=== PATIENT | male | born 1950 ===

== ENCOUNTER 2016-11-19 09:38 | Day surgery (SDC) | payer MEDICARE, MEDICAID ==
[2016-11-17 09:42] VITALS: BMI 26.6
[2016-11-19 10:46] VITALS: O2SAT 100
[2016-11-19] MEDS ORDERED: Propofol 10 mg/ml Inj (20 ML) ONE (12:41)
[2016-11-19] MEDS ORDERED: Lidocaine Hydrochloride 5 ML INJ ONE (12:52)
[2016-11-19] MEDS ORDERED: Lactated Ringer's 500 ML IV SCH (14:15)
[2016-11-19 15:45] VITALS: TEMP 97.2
[2016-11-19 15:49] VITALS: RESP 16
[2016-11-19 15:54] VITALS: BP 177/90; PULSE 84
== END 2016-11-19 15:13 | disposition home or self-care (01) ==
LOC: C.ENDO 09:38
PROVIDERS: ATTEND Internal Medicine Gastroenterology
DX: K29.80 Duodenitis without bleeding (principal); K29.70 Gastritis, unspecified, without bleeding; K64.8 Other hemorrhoids; D12.3 Benign neoplasm of transverse colon
CPT/HCPCS: 43239; 45388; 82948; 88305; J2704; J3010; J7120

== ENCOUNTER 2018-09-15 18:10 | Observation (INO) | payer MEDICARE, MEDICAID ==
[2018-09-15 18:11] VITALS: BMI 26.6
[2018-09-15] MEDS ORDERED: Sodium Chloride 0.9% 1,000 ML IV ONE (19:52)
--- NOTE | 2018-09-15 19:52 | C.PDOC ---
History Of Present Illness Patient presents to the ED with complaints of hematuria which started at 10am today. He noticed small blood clots in his urine and recalls a similar episode that took place a few years ago when he was diagnosed with renal cancer. Denies nausea, vomiting, fever, and chills. Time Seen by Provider: 09/15/18 19:51 Chief Complaint (Nursing): Male Genitourinary History Per: Patient History/Exam Limitations: no limitations Onset/Duration Of Symptoms: Hrs (11) Current Symptoms Are (Timing): Still Present Severity: Moderate Pain Scale Rating Of: 4 Associated Symptoms: denies: Fever, Chills, Nausea, Vomiting Recent travel outside of the [place]: No Additional History Per: Family Past Medical History Vital Signs: Last Vital Signs Temp 99.4 F 09/15/18 18:13 Pulse 78 09/15/18 18:13 Resp 20 09/15/18 18:13 BP 148/76 09/15/18 18:13 Pulse Ox 96 09/15/18 18:13 Primary Care Provider: Gian Hurtado - Medical History PMH: Anemia, Diabetes, HTN, Hypercholesterolemia, Chronic Kidney Disease Other PMH: Renal cancer Family History: States: Unknown Family Hx - Social History Hx Tobacco Use: No Hx Alcohol Use: No Hx Substance Use: No - Immunization History Hx Tetanus Toxoid Vaccination: No Hx Influenza Vaccination: Yes Hx Pneumococcal Vaccination: No Review Of Systems Constitutional: Negative for: Fever, Chills Cardiovascular: Negative for: Chest Pain, Palpitations Respiratory: Negative for: Cough Gastrointestinal: Negative for: Nausea, Vomiting, Abdominal Pain, Diarrhea Genitourinary: Positive for: Hematuria Musculoskeletal: Negative for: Back Pain Skin: Negative for: Rash Neurological: Negative for: Weakness, Numbness Psych: Negative for: Anxiety Physical Exam - Physical Exam Appears: Non-toxic Skin: Warm, Dry Head: Normacephalic Eye(s): bilateral: Normal Inspection Oral Mucosa: Moist Neck: Trachea Midline, Supple Chest: Symmetrical, No Tenderness Cardiovascular: Rhythm Regular Respiratory: No Rales, No Rhonchi, No Wheezing Gastrointestinal/Abdominal: Soft, No Tenderness, No Distention, No Guarding Back: No CVA Tenderness Male Genital: No Testicular Tenderness, No Inguinal Tenderness Extremity: No Tenderness Extremity: Bilateral: Atraumatic Pulses: Left Dorsalis Pedis: Normal, Right Dorsalis Pedis: Normal Neurological/Psych: Oriented x3 Gait: Steady ED Course And Treatment - Laboratory Results Result Diagrams: 09/15/18 20:37 09/15/18 20:37 O2 Sat by Pulse Oximetry: 96 (RA) Pulse Ox Interpretation: Normal Progress Note: Blood work urinalysis ordered. CT abd/pel ordered. IV fluids administered. Disposition Discussed With Dr.: Marycruz Fowler Comment: accepted the pt on her service and took over the care at 11:13 PM Doctor Will See Patient In The: ED Counseled Patient/Family Regarding: Studies Performed, Diagnosis - Disposition Disposition: HOSPITALIZED Disposition Time: 19:52 Condition: FAIR Forms: [employer] (Icelandic) - POA Present On Arrival: Poor Glycemic Control - Clinical Impression Clinical Impression: Hematuria, Esophagitis, Renal insufficiency, Hyponatremia - Scribe Statement The provider has reviewed the documentation as recorded by the Scribe (Rosaline Dan) Provider Attestation: All medical record entries made by the Scribe were at my direction and personally dictated by me. I have reviewed the chart and agree that the record accurately reflects my personal performance of the history, physical exam, medical decision making, and the department course for this patient. I have also personally directed, reviewed, and agree with the discharge instructions and disposition. Decision To Admit - Pt Status Changed To: Hospital Disposition Of: Observation - . Bed Request Type: Regular Admitting Physician: Marycruz Fowler Patient Diagnosis: Hematuria, Esophagitis, Renal insufficiency, Hyponatremia
[2018-09-15 20:41] LABS: BASO # 0.1 K/uL (0.0-0.2); BASO % 0.7 % (0.0-2.0); EOS # 0.2 K/uL (0.0-0.7); EOS % 2.1 % (0.0-4.0); HEMOGLOBIN 10.1 g/dL (12.0-18.0); LYMPH # 2.2 K/uL (1.0-4.3); LYMPH % 30.8 % (20.0-40.0); MEAN CORPUSCULAR HEMOGLOBIN 28.7 pg (27.0-31.0); MEAN CORPUSCULAR HGB CONC 34.2 g/dL (33.0-37.0); MONO # 0.6 K/uL (0.0-0.8); MONO % 8.6 % (0.0-10.0); NEUT # 4.2 K/uL (1.8-7.0); NEUT % 57.8 % (50.0-75.0); NRBC % 0.1 % (0.0-2.0); RBC 3.53 Mil/uL (4.40-5.90); RED CELL DISTRIBUTION WIDTH 13.9 % (11.5-14.5); WHITE BLOOD COUNT 7.2 K/uL (4.8-10.8)
[2018-09-15 20:42] LABS: URINE BACTERIA RARE (<OCC); URINE BILIRUBIN NEGATIVE (NEGATIVE); URINE CLARITY Clear (Clear); URINE COLOR Straw (YELLOW); URINE GLUCOSE (UA) 2+ mg/dL (Normal); URINE LEUKOCYTE ESTERASE NEG Leu/uL (Negative); URINE PROTEIN NEGATIVE (NEGATIVE); URINE UROBILINOGEN NORMAL mg/dL (0.2-1.0)
[2018-09-15 21:04] LABS: ALB/GLOB RATIO 1.5 (1.0-2.1); ALBUMIN 4.7 g/dL (3.5-5.0); CALCIUM 8.8 mg/dl (8.6-10.4)
[2018-09-15 21:07] LABS: URINE BLOOD 2+ (NEGATIVE)
[2018-09-15 21:12] LABS: PARTIAL THROMBOPLASTIN TIME 31.8 SECONDS (21-34); PROTHROMBIN TIME 10.4 SECONDS (9.7-12.2)
--- NOTE | 2018-09-16 00:08 | CP.PCM.HP ---
<Daniel Morales - Last Filed: 09/16/18 02:45> History of Present Illness - History of Present Illness History of Present Illness: "I'm urinating blood" 68M PMHx of HTN DM2, CKD and RCC presents to the ED with new onset hematuria since this morning. reports dark red urine with clots that was painless and without any inciting discomfort, hesistancy, back pain, or difficult initiating stream. Pt said this happened one time in the past 10 years ago when he was dx with renal cell ca, eventually leading to a L nephrectomy. Pt reports no new medication changes, saws hes been compliant with his meds and has been following up with his PMD and specialists. denies CP SOB FC NV back pain, suprapubic pain, dizziness, syncope, blood in stool, recent weight changes, night sweats, headaches, vision changes. 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, retired store web merchant Allergies: Denies Present on Admission - Present on Admission Any Indicators Present on Admission: No Review of Systems - Review of Systems All systems: reviewed and no additional remarkable complaints except (as per HPI) Past Patient History - Past Medical History & Family History Past Medical History?: Yes - Past Social History Smoking Status: Never Smoked - CARDIAC Hx Hypercholesterolemia: Yes Hx Hypertension: Yes - PULMONARY Hx Respiratory Disorders: Yes - NEUROLOGICAL Hx Neurological Disorder: No - HEENT Hx HEENT Problems: Yes Hx Cataracts: Yes (BIOL) - RENAL Hx Chronic Kidney Disease: Yes - ENDOCRINE/METABOLIC Hx Endocrine Disorders: Yes Hx Diabetes Mellitus Type 2: Yes - HEMATOLOGICAL/ONCOLOGICAL Hx Anemia: Yes - INTEGUMENTARY Hx Dermatological Problems: No - MUSCULOSKELETAL/RHEUMATOLOGICAL Hx Musculoskeletal Disorders: Yes Hx Osteoarthritis: Yes - GASTROINTESTINAL Hx Gastrointestinal Disorders: No - GENITOURINARY/GYNECOLOGICAL Hx Genitourinary Disorders: No - PSYCHIATRIC Hx Substance Use: No - SURGICAL HISTORY Hx Surgeries: Yes Hx Cataract Extraction: Yes (BIOL) Hx Orthopedic Surgery: Yes (left knee) Other/Comment: LEFT KIDNEY REMOVED - ANESTHESIA Hx Anesthesia: Yes Hx Anesthesia Reactions: No Hx Malignant Hyperthermia: No Meds Allergies/Adverse Reactions: Allergies Allergy/AdvReac Type Severity Reaction Status Date / Time No Known Allergies Allergy Verified 09/15/18 18:16 Physical Exam - Constitutional Appears: Non-toxic, No Acute Distress - Head Exam Head Exam: ATRAUMATIC, NORMOCEPHALIC - Eye Exam Eye Exam: EOMI. absent: Scleral icterus Pupil Exam: PERRL Additional comments: no conjunctival pallor - ENT Exam ENT Exam: Mucous Membranes Moist - Neck Exam Neck exam: Positive for: Full Rom. Negative for: Lymphadenopathy - Respiratory Exam Respiratory Exam: Clear to Auscultation Bilateral - Cardiovascular Exam Cardiovascular Exam: Rubs, +S1, +S2 - GI/Abdominal Exam GI & Abdominal Exam: Normal Bowel Sounds. absent: Firm, Organomegaly, Tenderness Additional comments: 15cm L lower lateral surgical scar, transverse linear - Exam Additional comments: no blood at meatus noted, no suprapubic tenderness - Extremities Exam Extremities exam: Positive for: pedal edema (+1 to distal shins) - Neurological Exam Neurological exam: Alert, CN II-XII Intact, Oriented x3 - Psychiatric Exam Psychiatric exam: Normal Affect, Normal Mood - Skin Skin Exam: Dry, Normal Color, Warm Results - Vital Signs Recent Vital Signs: Last Vital Signs Temp 99.4 F 09/15/18 18:13 Pulse 78 09/15/18 18:13 Resp 20 09/15/18 18:13 BP 148/76 09/15/18 18:13 Pulse Ox 96 09/15/18 23:17 - Labs Result Diagrams: 09/15/18 20:37 09/15/18 20:37 Labs: Laboratory Results - last 24 hr 09/15/18 09/15/18 09/15/18 20:31 20:37 20:37 WBC 7.2 RBC 3.53 L Hgb 10.1 L Hct 29.6 L MCV 84.0 D MCH 28.7 MCHC 34.2 RDW 13.9 Plt Count 215 MPV 8.0 Neut % (Auto) 57.8 Lymph % (Auto) 30.8 [place] % (Auto) 8.6 Eos % (Auto) 2.1 Baso % (Auto) 0.7 Neut # (Auto) 4.2 Lymph # (Auto) 2.2 [place] # (Auto) 0.6 Eos # (Auto) 0.2 Baso # (Auto) 0.1 PT 10.4 INR 1.0 APTT 31.8 Sodium Potassium Chloride Carbon Dioxide Anion Gap BUN Creatinine Est GFR ( Amer) Est GFR (Non-Af Amer) Random Glucose Hemoglobin A1c Calcium Total Bilirubin AST ALT Alkaline Phosphatase Total Protein Albumin Globulin Albumin/Globulin Ratio Urine Color Straw Urine Clarity Clear Urine pH 7.0 Ur Specific Vera 1.003 Urine Protein Negative Urine Glucose (UA) 2+ H Urine Ketones Negative Urine Blood 2+ H Urine Nitrate Negative Urine Bilirubin Negative Urine Urobilinogen Normal Ur Leukocyte Esterase Neg Urine WBC (Auto) < 1 Urine Bacteria Rare 09/15/18 09/15/18 20:37 20:37 WBC RBC Hgb Hct MCV MCH MCHC RDW Plt Count MPV Neut % (Auto) Lymph % (Auto) [place] % (Auto) Eos % (Auto) Baso % (Auto) Neut # (Auto) Lymph # (Auto) [place] # (Auto) Eos # (Auto) Baso # (Auto) PT INR APTT Sodium 129 L Potassium 5.3 H Chloride 93 L Carbon Dioxide 21 L Anion Gap 20 BUN 33 H Creatinine 3.7 H Est GFR ( Amer) 20 Est GFR (Non-Af Amer) 16 Random Glucose 262 H D Hemoglobin A1c 11.9 H D Calcium 8.8 Total Bilirubin 0.7 AST 42 ALT 66 Alkaline Phosphatase 132 H Total Protein 7.8 Albumin 4.7 Globulin 3.1 Albumin/Globulin Ratio 1.5 Urine Color Urine Clarity Urine pH Ur Specific Vera Urine Protein Urine Glucose (UA) Urine Ketones Urine Blood Urine Nitrate Urine Bilirubin Urine Urobilinogen Ur Leukocyte Esterase Urine WBC (Auto) Urine Bacteria Assessment & Plan - Assessment and Plan (Free Text) Assessment: 68M PMHx of HTN, DM2, CKD, RCC admitted for new onset hematuria and SYBIL New Onset Hematuria-acute Hx of RCC -CT AbPelv w/o cont: prelim neg f/u official read -NS @ 100 -Urology Dr Hu consulted -Nephro Dr Turner consulted -f/u IL6 and TNF SYBIL on CKD-acute on chronic -Cr 3.7, up from 2s in past -Nephro Dr Turner, f/u recs -Renvela 2mg TID -SodiumBicarb 650 TID -Drisdol qwk -Monitor I&Os HTN -Norvasc 10 daily -Coreg 25 BID -Lasix 20 daily PO -ASA 81 held for hematuria -Crestor 20 daily DM2 -ISS Low -Lantus 10 daily AM -Januvia 1 HS -Glucotrol 1 daily -A1C 11.9 PPx Diabetic HHDiet- vegetarian hold anti coag for hematuria SCDs CK PGY1 dw Dr Fowler <[email or web address] N - Last Filed: 09/16/18 05:32> Results - Vital Signs Recent Vital Signs: Last Vital Signs Temp 97.9 F 09/16/18 01:36 Pulse 88 09/16/18 01:36 Resp 20 09/16/18 01:36 BP 162/76 H 09/16/18 01:36 Pulse Ox 95 09/16/18 01:36 - Labs Result Diagrams: 09/15/18 20:37 09/15/18 20:37 Labs: Laboratory Results - last 24 hr 09/15/18 09/15/18 09/15/18 20:31 20:37 20:37 WBC 7.2 RBC 3.53 L Hgb 10.1 L Hct 29.6 L MCV 84.0 D MCH 28.7 MCHC 34.2 RDW 13.9 Plt Count 215 MPV 8.0 Neut % (Auto) 57.8 Lymph % (Auto) 30.8 [place] % (Auto) 8.6 Eos % (Auto) 2.1 Baso % (Auto) 0.7 Neut # (Auto) 4.2 Lymph # (Auto) 2.2 [place] # (Auto) 0.6 Eos # (Auto) 0.2 Baso # (Auto) 0.1 PT 10.4 INR 1.0 APTT 31.8 Sodium Potassium Chloride Carbon Dioxide Anion Gap BUN Creatinine Est GFR ( Amer) Est GFR (Non-Af Amer) Random Glucose Hemoglobin A1c Calcium Total Bilirubin AST ALT Alkaline Phosphatase Total Protein Albumin Globulin Albumin/Globulin Ratio Urine Color Straw Urine Clarity Clear Urine pH 7.0 Ur Specific Vera 1.003 Urine Protein Negative Urine Glucose (UA) 2+ H Urine Ketones Negative Urine Blood 2+ H Urine Nitrate Negative Urine Bilirubin Negative Urine Urobilinogen Normal Ur Leukocyte Esterase Neg Urine WBC (Auto) < 1 Urine Bacteria Rare Blood Type Antibody Screen 09/15/18 09/15/18 09/16/18 20:37 20:37 01:32 WBC RBC Hgb Hct MCV MCH MCHC RDW Plt Count MPV Neut % (Auto) Lymph % (Auto) [place] % (Auto) Eos % (Auto) Baso % (Auto) Neut # (Auto) Lymph # (Auto) [place] # (Auto) Eos # (Auto) Baso # (Auto) PT INR APTT Sodium 129 L Potassium 5.3 H Chloride 93 L Carbon Dioxide 21 L Anion Gap 20 BUN 33 H Creatinine 3.7 H Est GFR ( Amer) 20 Est GFR (Non-Af Amer) 16 Random Glucose 262 H D Hemoglobin A1c 11.9 H D Calcium 8.8 Total Bilirubin 0.7 AST 42 ALT 66 Alkaline Phosphatase 132 H Total Protein 7.8 Albumin 4.7 Globulin 3.1 Albumin/Globulin Ratio 1.5 Urine Color Urine Clarity Urine pH Ur Specific Vera Urine Protein Urine Glucose (UA) Urine Ketones Urine Blood Urine Nitrate Urine Bilirubin Urine Urobilinogen Ur Leukocyte Esterase Urine WBC (Auto) Urine Bacteria Blood Type O POSITIVE Antibody Screen Negative Attending/Attestation - Attestation I have fully participated in the care of the patient.: Yes I have reviewed all pertinent clinical information: Yes Notes (Text): 09/16/18 05:31 pt is seen and helped the resident with manegment by me.
[2018-09-16] MEDS: Sodium Chloride 0.9% 1,000 ML IV SCH ×2 (01:31→09:58)
[2018-09-16 01:37] VITALS: RESP 20
[2018-09-16] MEDS ORDERED: Dextrose 50% SYRINGE Inj (50 ml) IV PRN (01:43)
[2018-09-16] MEDS ORDERED: Glucagon Recombinant 1 mg Inj IM PRN (01:43)
[2018-09-16 08:23] LABS: BASO % 0.5 % (0.0-2.0); EOS # 0.1 K/uL (0.0-0.7); EOS % 1.7 % (0.0-4.0); HEMOGLOBIN 8.7 g/dL (12.0-18.0); LYMPH # 2.1 K/uL (1.0-4.3); LYMPH % 32.6 % (20.0-40.0); MEAN CELL VOLUME 83.9 fL (80.0-94.0); MEAN CORPUSCULAR HEMOGLOBIN 29.7 pg (27.0-31.0); MEAN CORPUSCULAR HGB CONC 35.3 g/dL (33.0-37.0); MONO # 0.5 K/uL (0.0-0.8); MONO % 7.8 % (0.0-10.0); NEUT # 3.6 K/uL (1.8-7.0); NEUT % 57.4 % (50.0-75.0); RBC 2.94 Mil/uL (4.40-5.90); RED CELL DISTRIBUTION WIDTH 13.6 % (11.5-14.5); WHITE BLOOD COUNT 6.3 K/uL (4.8-10.8)
[2018-09-16] MEDS: (Novolin R) Insulin Human Regular 100 units/ml vial SC SCH ×3 (08:24→17:25)
--- NOTE | 2018-09-16 08:28 | CT ---
Date of service: 09/15/2018 PROCEDURE: CT Abdomen and Pelvis without intravenous contrast HISTORY: hematuria COMPARISON: 10/08/2012 TECHNIQUE: Without contrast.. Contrast dose: 0 Radiation dose: Total exam DLP = 653.69 mGy-cm. This CT exam was performed using one or more of the following dose reduction techniques: Automated exposure control, adjustment of the mA and/or kV according to patient size, and/or use of iterative reconstruction technique. FINDINGS: LOWER THORAX: There is circumferential mural thickening of the distal thoracic esophagus. This is nonspecific and may be due to esophagitis or less likely neoplasm. Consider evaluation with endoscopy. LIVER: Unremarkable. No gross lesion or ductal dilatation. GALLBLADDER AND BILE DUCTS: Contracted. No calcified stones. PANCREAS: Unremarkable. No gross lesion or ductal dilatation. SPLEEN: Unremarkable. ADRENALS: Unremarkable. No mass. KIDNEYS AND URETERS: Status post left nephrectomy. Right kidney unremarkable. No calculus, mass or hydronephrosis. Mild right adrenal hypertrophy. Left adrenal not identified VASCULATURE: Unremarkable. No aortic aneurysm. There is atherosclerotic calcification of the abdominal aorta. BOWEL: Unremarkable. No obstruction. No gross mural thickening. APPENDIX: Not identified. No secondary findings. PERITONEUM: Unremarkable. No free fluid. No free air. LYMPH NODES: Unremarkable. No enlarged lymph nodes. BLADDER: Unremarkable. REPRODUCTIVE: Normal prostate BONES: Multilevel degenerative disc disease in the lower lumbar spine. No acute fracture. OTHER FINDINGS: None. IMPRESSION: No evidence of urinary calculus or urinary tract obstruction. Status post left nephrectomy. Right adrenal hypertrophy. Mural thickening of the distal thoracic esophagus. Correlate with endoscopy. No other significant. The preliminary findings for this examination were reported by [facility] Radiology at 11 p.m. on 09/15/2018. There is concurrence of this report with the preliminary findings.
[2018-09-16 08:35] LABS: ALB/GLOB RATIO 1.4 (1.0-2.1); ALBUMIN 3.8 g/dL (3.5-5.0); CALCIUM 8.9 mg/dl (8.6-10.4)
--- NOTE | 2018-09-16 09:42 | RAD ---
Date of service: 09/16/2018 PROCEDURE: CHEST RADIOGRAPH, 1 VIEW HISTORY: ckd COMPARISON: 03/16/2016 FINDINGS: LUNGS: Clear. PLEURA: No pneumothorax or pleural fluid seen. CARDIOVASCULAR: No aortic atherosclerotic calcification present. Normal. OSSEOUS STRUCTURES: No significant abnormalities. VISUALIZED UPPER ABDOMEN: Normal. OTHER FINDINGS: None. IMPRESSION: No active disease.
[2018-09-16] MEDS ORDERED: (Lantus) Insulin Glargine, Recombinant SC SCH (10:00)
[2018-09-16] MEDS ORDERED: GlipiZIDE 10 mg SR Tab PO SCH (10:00)
[2018-09-16] MEDS ORDERED: Multiple Vitamins Tab PO SCH (10:00)
--- NOTE | 2018-09-16 13:21 | CP.PCM.PN ---
Subjective - Date & Time of Evaluation Date of Evaluation: 09/16/18 Time of Evaluation: 13:23 - Subjective Subjective: PGY-[address] Tara Easley Patient seen and examined at bedside. No acute events overnight. Patient states he had one bout of painless hematuria, which has now resolved. Patient states he urinated 5-6 times today and urine was clear, non-bloody. Denies dysuria, incresed frequency, flank pain, suprapubic pain, chest pain, nausea, vomiting, diarrhea, dizziness. Objective - Vital Signs/Intake and Output Vital Signs (last 24 hours): Temp Pulse Resp BP Pulse Ox 98.2 F 83 20 151/77 H 96 09/16/18 07:00 09/16/18 07:00 09/16/18 07:00 09/16/18 09:53 09/16/18 07:00 Intake and Output: 09/16/18 09/16/18 06:59 18:59 Intake Total 840 900 Output Total 600 Balance 240 900 - Medications Medications: Current Medications Amlodipine Besylate (Norvasc) 10 mg PO DAILY [facility] Last Admin: 09/16/18 09:54 Dose: 10 mg Aspirin (Aspirin Chewable) 81 mg PO DAILY [facility] Carvedilol (Coreg) 25 mg PO BID [facility] Last Admin: 09/16/18 09:53 Dose: 25 mg Dextrose (Dextrose 50% Inj) 0 ml IV STAT PRN; Protocol PRN Reason: Hypoglycemia Protocol Dextrose (Glutose 15) 0 gm PO ONCE PRN; Protocol PRN Reason: Hypoglycemia Protocol Ergocalciferol (Drisdol 50,000 Intl Units Cap) 1 cap PO QWK [facility] Glucagon (Glucagen Diagnostic Kit) 0 mg IM STAT PRN; Protocol PRN Reason: Hypoglycemia Protocol Sodium Chloride (Sodium Chloride 0.9%) 1,000 mls @ 100 mls/hr IV .Q10H [facility] Last Admin: 09/16/18 09:58 Dose: 100 mls/hr Dextrose (Dextrose 5% In Water 1000 Ml) 1,000 mls @ 0 mls/hr IV .Q0M PRN; Protocol PRN Reason: Hypoglycemia Protocol Insulin Glargine (Lantus) 10 unit SC DAILY [facility] Last Admin: 09/16/18 09:54 Dose: 10 unit Insulin Human Regular (Novolin R) 0 unit SC ACHS [facility]; Protocol Last Admin: 09/16/18 11:44 Dose: 3 unit Multivitamins (Hexavitamin) 1 tab PO DAILY [facility] Last Admin: 09/16/18 09:54 Dose: 1 tab Pneumococcal Polyvalent Vaccine (Pneumovax 23 Vaccine) 0.5 ml IM .ONCE ONE Stop: 09/18/18 10:01 Rosuvastatin Calcium (Crestor) 20 mg PO DAILY [facility] Last Admin: 09/16/18 09:53 Dose: 20 mg Sevelamer Carbonate (Renvela) 1,600 mg PO TID [facility] Last Admin: 09/16/18 13:06 Dose: 1,600 mg Sodium Bicarbonate (Sodium Bicarbonate Tab) 650 mg PO TID [facility] Last Admin: 09/16/18 13:06 Dose: 650 mg - Labs Labs: 09/16/18 08:14 09/16/18 08:14 PT 10.4 SECONDS (9.7-12.2) 09/15/18 20:37 INR 1.0 09/15/18 20:37 APTT 31.8 SECONDS (21-34) 09/15/18 20:37 - Constitutional Appears: No Acute Distress - Head Exam Head Exam: ATRAUMATIC, NORMOCEPHALIC - Eye Exam Eye Exam: EOMI - ENT Exam ENT Exam: Mucous Membranes Moist - Respiratory Exam Respiratory Exam: Clear to Ausculation Bilateral, NORMAL BREATHING PATTERN. absent: Rhonchi, Wheezes - Cardiovascular Exam Cardiovascular Exam: REGULAR RHYTHM - GI/Abdominal Exam GI & Abdominal Exam: Soft, Normal Bowel Sounds. absent: Tenderness Additional comments: 15cm L lower lateral surgical scar, transverse linear - Exam Additional comments: no blood at meatus noted, no suprapubic tenderness - Extremities Exam Extremities Exam: Normal Inspection. absent: Pedal Edema, Tenderness - Neurological Exam Neurological Exam: Alert, Awake, Oriented x3 - Psychiatric Exam Psychiatric exam: Normal Affect, Normal Mood - Skin Skin Exam: Dry, Intact Assessment and Plan - Assessment and Plan (Free Text) Assessment: 68M PMHx of HTN, DM2, CKD, RCC admitted for new onset hematuria and SYBIL New Onset Hematuria-acute Hx of RCC Imaging -CT AbPelv w/o cont 09/15: No evidence of urinary calculus or urinary tract obstruction. Status post left nephrectomy. Right adrenal hypertrophy. Mural thickening of the distal thoracic esophagus. Correlate with endoscopy. No other significant. -NS @ 100 -Urology Dr Hu consulted -Nephro Dr Turner consulted -f/u IL6 and TNF YSBIL on CKD-acute on chronic -Cr 3.7, up from 2s in past -Nephro Dr Turner, f/u recs -Renvela 2mg TID -SodiumBicarb 650 TID -Drisdol qwk -Monitor I&Os Imaging CXR 09/15: No active disease HTN -Norvasc 10 daily -Coreg 25 BID -Lasix 20 daily PO -ASA 81 held for hematuria -Crestor 20 daily DM2 -ISS Low -Lantus 10 daily AM -Januvia 1 HS -Glucotrol 1 daily -A1C 11.9 PPx Diabetic HHDiet- vegetarian hold anti coag for hematuria SCDs Assessment and plan d/w Dr. Tara Beltran, PGY-1
--- NOTE | 2018-09-16 15:25 | CP.PCM.CON ---
History of Present Illness - History of Present Illness History of Present Illness: Nephrology Consultation Note: Assessment: Stable hematuria r/o urothelial etiology as hx of RCC s/p left nephrectomy uncontrolled DM with hyperglycemia, hyponatremia and hyperkalemia Diabetic chronic Kidney Disease (E11.22) Hypertensive Chronic Kidney Disease (I12.9) Chronic Kidney Disease (N18.4) Stage 4 Anemia (D64.9), Hyperphosphatemia (E83.39), Secondary Hyperparathyroidism (E21.1) Plan No acute need for renal replacement therapy at this time. Hypertension control with meds as ordered. Maintain hemodynamics stable. Avoid hypotension. Patient not on ACEI/ARB due to advanced ckd and hyperkalemia Monitor Input/Output, daily weights and renal function with basic metabolic panel started iron supplements. continue with MVI can d/c IVF urology eval continue with phos binders, sodium bicarb. can resume lasix Dose meds/antibiotics for reduced GFR. Avoid fleets enema/magnesium based laxatives. Avoid nephrotoxins/NSAIDs/ iodinated contrast (unless needed emergently) Glycemic control Further work up/management as per primary team pt stable for d/c from renal perspective when planned with close outpt f/up Thanks for allowing me to participate in care of your patient. Will follow patient with you. Please call if any Qs. had d/w family and team Dr Alexis Turner Office: [phone] Chief Complaint; blood in urine Reason for consult:CKD management HPI: Pt is a 68 M with hx of diabetes Mellitus ( years), hypertension (years) CKD 4/5 (f/up Dr Fleming) and RCC s/p left nephrectomy presented with complaints of an episode of bright blood in urine. it has resolved now. denies trauma. Denies OTC/herbal meds or NSAIDs No recent iodinated contrast exposure. No obvious episodes of low BP. pt with baseline cr 4.0. no urine complaint at present ROS: Cardiovascular: No chest pain. Pulmonary: No shortness of breath Gastrointestinal: denies abdominal pain No nausea. No vomiting. Genitourinary: No pain while urinating. Denies blood in urine at present. All other negative except as mentioned in HPI Physical Examination: General Appearance: Comfortable, in no acute respiratory distress, co-operative . Vitals reviewed and noted as below Head; Atraumatic, normocephalic ENT: no ulcers no thrush. Tongue is midline. Oropharynx: no rash or ulcers. EYES: Pupils are equal, round and reactive to light accommodation. Eye muscles and extraocular movement intact. Sclera is anicteric. Neck; supple no lymphadenopathy, no thyromegaly or bruit Lungs: Normal respiratory rate/effort. Breath sounds bilateral equal and clear Heart: Normal rate. s1s2 normal. No rub or gallop. Extremities: no edema. No varicose veins Neurological: Patient is alert, awake and oriented to person, place and time. No focal deficit. Strength bilateral appropriate and equal Skin: Warm and dry. Normal turgor. No rash. Palpitation: Normal elasticity for age Abdomen: Abdomen is soft. Bowel sounds +. There is no abdominal tenderness, no guarding/rigidity no organomegaly Psych: normal insight and normal affect/mood MSK: no joint tenderness or swelling. Digits and nails normal, no deformity : kidney or bladder not palpable Labs/imaging reviewed. Past medical history, past surgical history, family history, social history, allergy reviewed and noted as below Family hx: no hx of CKD. Rest non-contributory Past Patient History - Past Medical History & Family History Past Medical History?: Yes - Past Social History Smoking Status: Never Smoked - CARDIAC Hx Hypercholesterolemia: Yes Hx Hypertension: Yes - PULMONARY Hx Respiratory Disorders: Yes - NEUROLOGICAL Hx Neurological Disorder: No - HEENT Hx HEENT Problems: Yes Hx Cataracts: Yes (BIOL) - RENAL Hx Chronic Kidney Disease: Yes - ENDOCRINE/METABOLIC Hx Endocrine Disorders: Yes Hx Diabetes Mellitus Type 2: Yes - HEMATOLOGICAL/ONCOLOGICAL Hx Anemia: Yes - INTEGUMENTARY Hx Dermatological Problems: No - MUSCULOSKELETAL/RHEUMATOLOGICAL Hx Musculoskeletal Disorders: Yes Hx Osteoarthritis: Yes - GASTROINTESTINAL Hx Gastrointestinal Disorders: No - GENITOURINARY/GYNECOLOGICAL Hx Genitourinary Disorders: No - PSYCHIATRIC Hx Substance Use: No - SURGICAL HISTORY Hx Surgeries: Yes Hx Cataract Extraction: Yes (BIOL) Hx Orthopedic Surgery: Yes (left knee) Other/Comment: LEFT KIDNEY REMOVED - ANESTHESIA Hx Anesthesia: Yes Hx Anesthesia Reactions: No Hx Malignant Hyperthermia: No Meds Allergies/Adverse Reactions: Allergies Allergy/AdvReac Type Severity Reaction Status Date / Time No Known Allergies Allergy Verified 09/15/18 18:16 - Medications Medications: Current Medications Amlodipine Besylate (Norvasc) 10 mg PO DAILY [facility] Last Admin: 05/31/19 09:54 Dose: 10 mg Aspirin (Aspirin Chewable) 81 mg PO DAILY [facility] Carvedilol (Coreg) 25 mg PO BID [facility] Last Admin: 09/16/18 09:53 Dose: 25 mg Dextrose (Dextrose 50% Inj) 0 ml IV STAT PRN; Protocol PRN Reason: Hypoglycemia Protocol Dextrose (Glutose 15) 0 gm PO ONCE PRN; Protocol PRN Reason: Hypoglycemia Protocol Ergocalciferol (Drisdol 50,000 Intl Units Cap) 1 cap PO QWK [facility] Ferrous Gluconate (Fergon) 324 mg PO TID [facility] Last Admin: 09/16/18 13:51 Dose: 324 mg Glucagon (Glucagen Diagnostic Kit) 0 mg IM STAT PRN; Protocol PRN Reason: Hypoglycemia Protocol Dextrose (Dextrose 5% In Water 1000 Ml) 1,000 mls @ 0 mls/hr IV .Q0M PRN; Protocol PRN Reason: Hypoglycemia Protocol Insulin Glargine (Lantus) 10 unit SC DAILY [facility] Last Admin: 09/16/18 09:54 Dose: 10 unit Insulin Human Regular (Novolin R) 0 unit SC ACHS [facility]; Protocol Last Admin: 09/16/18 11:44 Dose: 3 unit Multivitamins (Hexavitamin) 1 tab PO DAILY [facility] Last Admin: 09/16/18 09:54 Dose: 1 tab Pneumococcal Polyvalent Vaccine (Pneumovax 23 Vaccine) 0.5 ml IM .ONCE ONE Stop: 09/18/18 10:01 Rosuvastatin Calcium (Crestor) 20 mg PO DAILY [facility] Last Admin: 09/16/18 09:53 Dose: 20 mg Sevelamer Carbonate (Renvela) 1,600 mg PO TID [facility] Last Admin: 09/16/18 13:06 Dose: 1,600 mg Sodium Bicarbonate (Sodium Bicarbonate Tab) 650 mg PO TID [facility] Last Admin: 09/16/18 13:06 Dose: 650 mg Results - Vital Signs Recent Vital Signs: Last Vital Signs Temp 98.2 F 09/16/18 07:00 Pulse 83 09/16/18 07:00 Resp 20 09/16/18 07:00 BP 151/77 H 09/16/18 09:53 Pulse Ox 96 09/16/18 12:33 - Labs Result Diagrams: 09/16/18 08:14 09/16/18 08:14 Labs: Laboratory Results - last 24 hr 09/15/18 09/15/18 09/15/18 20:31 20:37 20:37 WBC 7.2 RBC 3.53 L Hgb 10.1 L Hct 29.6 L MCV 84.0 D MCH 28.7 MCHC 34.2 RDW 13.9 Plt Count 215 MPV 8.0 Neut % (Auto) 57.8 Lymph % (Auto) 30.8 [place] % (Auto) 8.6 Eos % (Auto) 2.1 Baso % (Auto) 0.7 Neut # (Auto) 4.2 Lymph # (Auto) 2.2 [place] # (Auto) 0.6 Eos # (Auto) 0.2 Baso # (Auto) 0.1 PT 10.4 INR 1.0 APTT 31.8 Sodium Potassium Chloride Carbon Dioxide Anion Gap BUN Creatinine Est GFR ( Amer) Est GFR (Non-Af Amer) POC Glucose (mg/dL) Random Glucose Hemoglobin A1c Calcium Total Bilirubin AST ALT Alkaline Phosphatase Total Protein Albumin Globulin Albumin/Globulin Ratio Urine Color Straw Urine Clarity Clear Urine pH 7.0 Ur Specific [place] 1.003 Urine Protein Negative Urine Glucose (UA) 2+ H Urine Ketones Negative Urine Blood 2+ H Urine Nitrate Negative Urine Bilirubin Negative Urine Urobilinogen Normal Ur Leukocyte Esterase Neg Urine WBC (Auto) < 1 Urine Bacteria Rare Blood Type Antibody Screen 09/15/18 09/15/18 09/16/18 20:37 20:37 01:32 WBC RBC Hgb Hct MCV MCH MCHC RDW Plt Count MPV Neut % (Auto) Lymph % (Auto) [place] % (Auto) Eos % (Auto) Baso % (Auto) Neut # (Auto) Lymph # (Auto) [place] # (Auto) Eos # (Auto) Baso # (Auto) PT INR APTT Sodium 129 L Potassium 5.3 H Chloride 93 L Carbon Dioxide 21 L Anion Gap 20 BUN 33 H Creatinine 3.7 H Est GFR ( Amer) 20 Est GFR (Non-Af Amer) 16 POC Glucose (mg/dL) Random Glucose 262 H D Hemoglobin A1c 11.9 H D Calcium 8.8 Total Bilirubin 0.7 AST 42 ALT 66 Alkaline Phosphatase 132 H Total Protein 7.8 Albumin 4.7 Globulin 3.1 Albumin/Globulin Ratio 1.5 Urine Color Urine Clarity Urine pH Ur Specific [place] Urine Protein Urine Glucose (UA) Urine Ketones Urine Blood Urine Nitrate Urine Bilirubin Urine Urobilinogen Ur Leukocyte Esterase Urine WBC (Auto) Urine Bacteria Blood Type O POSITIVE Antibody Screen Negative 09/16/18 09/16/18 09/16/18 07:25 08:14 08:14 WBC 6.3 RBC 2.94 L Hgb 8.7 L Hct 24.6 L MCV 83.9 MCH 29.7 MCHC 35.3 RDW 13.6 Plt Count 185 MPV 8.0 Neut % (Auto) 57.4 Lymph % (Auto) 32.6 [place] % (Auto) 7.8 Eos % (Auto) 1.7 Baso % (Auto) 0.5 Neut # (Auto) 3.6 Lymph # (Auto) 2.1 [place] # (Auto) 0.5 Eos # (Auto) 0.1 Baso # (Auto) 0.0 PT INR APTT Sodium 134 Potassium 4.5 Chloride 103 Carbon Dioxide 23 Anion Gap 12 BUN 27 H Creatinine 3.7 H Est GFR ( Amer) 20 Est GFR (Non-Af Amer) 16 POC Glucose (mg/dL) 220 H Random Glucose 206 H D Hemoglobin A1c Calcium 8.9 Total Bilirubin 0.3 AST 26 ALT 51 Alkaline Phosphatase 101 Total Protein 6.4 Albumin 3.8 Globulin 2.6 Albumin/Globulin Ratio 1.4 Urine Color Urine Clarity Urine pH Ur Specific [place] Urine Protein Urine Glucose (UA) Urine Ketones Urine Blood Urine Nitrate Urine Bilirubin Urine Urobilinogen Ur Leukocyte Esterase Urine WBC (Auto) Urine Bacteria Blood Type Antibody Screen 09/16/18 11:09 WBC RBC Hgb Hct MCV MCH MCHC RDW Plt Count MPV Neut % (Auto) Lymph % (Auto) [place] % (Auto) Eos % (Auto) Baso % (Auto) Neut # (Auto) Lymph # (Auto) [place] # (Auto) Eos # (Auto) Baso # (Auto) PT INR APTT Sodium Potassium Chloride Carbon Dioxide Anion Gap BUN Creatinine Est GFR ( Amer) Est GFR (Non-Af Amer) POC Glucose (mg/dL) 268 H Random Glucose Hemoglobin A1c Calcium Total Bilirubin AST ALT Alkaline Phosphatase Total Protein Albumin Globulin Albumin/Globulin Ratio Urine Color Urine Clarity Urine pH Ur Specific [place] Urine Protein Urine Glucose (UA) Urine Ketones Urine Blood Urine Nitrate Urine Bilirubin Urine Urobilinogen Ur Leukocyte Esterase Urine WBC (Auto) Urine Bacteria Blood Type Antibody Screen
[2018-09-16 16:16] VITALS: BP 142/72; PULSE 72; TEMP 98.6
[2018-09-16 16:32] VITALS: O2SAT 96
[2018-09-16] MEDS ORDERED: Pneumococcal 23-Valent Vaccine IM ONE (18:15)
--- NOTE | 2018-09-16 18:34 | CP.PCM.DIS ---
<Kurt Beltran - Last Filed: 09/16/18 18:25> Provider - Provider Date of Admission: 09/15/18 23:12 Attending physician: Marycruz Fowler MD Consults: 09/15/18 23:47 Nephrology Consult Routine Comment: Consulting Provider: Alexis Turner Consulting Physician: Alexis Turner Reason for Consult: new onset hematuria Urology Consult Routine Comment: Consulting Provider: Nikki Hu Consulting Physician: Nikki Hu Reason for Consult: new onset hematuria Time Spent in preparation of Discharge (in minutes): 45 Diagnosis - Discharge Diagnosis (1) Hematuria Status: Acute Hospital Course - Lab Results Lab Results: Most Recent Lab Values WBC 6.3 K/uL (4.8-10.8) 09/16/18 08:14 RBC 2.94 Mil/uL (4.40-5.90) L 09/16/18 08:14 Hgb 8.7 g/dL (12.0-18.0) L 09/16/18 08:14 Hct 24.6 % (35.0-51.0) L 09/16/18 08:14 MCV 83.9 fL (80.0-94.0) 09/16/18 08:14 MCH 29.7 pg (27.0-31.0) 09/16/18 08:14 MCHC 35.3 g/dL (33.0-37.0) 09/16/18 08:14 RDW 13.6 % (11.5-14.5) 09/16/18 08:14 Plt Count 185 K/uL (130-400) 09/16/18 08:14 MPV 8.0 fL (7.2-11.7) 09/16/18 08:14 Neut % (Auto) 57.4 % (50.0-75.0) 09/16/18 08:14 Lymph % (Auto) 32.6 % (20.0-40.0) 09/16/18 08:14 [place] % (Auto) 7.8 % (0.0-10.0) 09/16/18 08:14 Eos % (Auto) 1.7 % (0.0-4.0) 09/16/18 08:14 Baso % (Auto) 0.5 % (0.0-2.0) 09/16/18 08:14 Neut # (Auto) 3.6 K/uL (1.8-7.0) 09/16/18 08:14 Lymph # (Auto) 2.1 K/uL (1.0-4.3) 09/16/18 08:14 [place] # (Auto) 0.5 K/uL (0.0-0.8) 09/16/18 08:14 Eos # (Auto) 0.1 K/uL (0.0-0.7) 09/16/18 08:14 Baso # (Auto) 0.0 K/uL (0.0-0.2) 09/16/18 08:14 PT 10.4 SECONDS (9.7-12.2) 09/15/18 20:37 INR 1.0 09/15/18 20:37 APTT 31.8 SECONDS (21-34) 09/15/18 20:37 Sodium 134 mmol/L (132-148) 09/16/18 08:14 Potassium 4.5 mmol/L (3.6-5.2) 09/16/18 08:14 Chloride 103 mmol/L (98-107) 09/16/18 08:14 Carbon Dioxide 23 mmol/L (22-30) 09/16/18 08:14 Anion Gap 12 (10-20) 09/16/18 08:14 BUN 27 mg/dL (9-20) H 09/16/18 08:14 Creatinine 3.7 mg/dL (0.8-1.5) H 09/16/18 08:14 Est GFR ( Amer) 20 09/16/18 08:14 Est GFR (Non-Af Amer) 16 09/16/18 08:14 POC Glucose (mg/dL) 272 mg/dL (65-110) H 09/16/18 16:25 Random Glucose 206 mg/dL (75-110) H D 09/16/18 08:14 Hemoglobin A1c 11.9 % (4.2-6.5) H D 09/15/18 20:37 Calcium 8.9 mg/dl (8.6-10.4) 09/16/18 08:14 Total Bilirubin 0.3 mg/dL (0.2-1.3) 09/16/18 08:14 AST 26 U/L (17-59) 09/16/18 08:14 ALT 51 U/L (21-72) 09/16/18 08:14 Alkaline Phosphatase 101 U/L (38-126) 09/16/18 08:14 Total Protein 6.4 g/dL (6.3-8.3) 09/16/18 08:14 Albumin 3.8 g/dL (3.5-5.0) 09/16/18 08:14 Globulin 2.6 gm/dL (2.2-3.9) 09/16/18 08:14 Albumin/Globulin Ratio 1.4 (1.0-2.1) 09/16/18 08:14 Urine Color Straw (YELLOW) 09/15/18 20:31 Urine Clarity Clear (Clear) 09/15/18 20:31 Urine pH 7.0 (5.0-8.0) 09/15/18 20:31 Ur Specific [place] 1.003 (1.003-1.030) 09/15/18 20:31 Urine Protein Negative mg/dL (NEGATIVE) 09/15/18 20:31 Urine Glucose (UA) 2+ mg/dL (Normal) H 09/15/18 20:31 Urine Ketones Negative mg/dL (NEGATIVE) 09/15/18 20:31 Urine Blood 2+ (NEGATIVE) H 09/15/18 20:31 Urine Nitrate Negative (NEGATIVE) 09/15/18 20:31 Urine Bilirubin Negative (NEGATIVE) 09/15/18 20:31 Urine Urobilinogen Normal mg/dL (0.2-1.0) 09/15/18 20:31 Ur Leukocyte Esterase Neg [place]/uL (Negative) 09/15/18 20:31 Urine WBC (Auto) < 1 /hpf (0-5) 09/15/18 20:31 Urine Bacteria Rare (<OCC) 09/15/18 20:31 Blood Type O POSITIVE 09/16/18 01:32 Antibody Screen Negative 09/16/18 01:32 - Hospital Course Hospital Course: HPI 68M PMHx of HTN DM2, CKD and RCC presents to the ED with new onset hematuria since this morning. reports dark red urine with clots that was painless and without any inciting discomfort, hesistancy, back pain, or difficult initiating stream. Pt said this happened one time in the past 10 years ago when he was dx with renal cell ca, eventually leading to a L nephrectomy. Pt reports no new medication changes, saws hes been compliant with his meds and has been following up with his PMD and specialists. denies CP SOB FC NV back pain, suprapubic pain, dizziness, syncope, blood in stool, recent weight changes, night sweats, headaches, vision changes. Hospital Course Patient admitted for noted once episode of hematuria. Patient with history of renal cell CA s/p L nephrectomy in the past. CT of the abdomen and pelvis did not show any obvious new masses or deformities. Urology was consulted, Dr. Nikki Hu. On admission, patient noted to have creatinine of 3.7. Nephrology was consoulted, Dr. Turner. Dr. Turner saw patient and noted that per recent outpatient labs, patient had Cr of 4.0, thus he is chronically in stage 5 renal failure. Patient had only one episode of painless hematuria and then was urinating normally with clear urine and no dysuria or other symptoms. Patient without fever or leukocytosis. Patient was deemed safe to be discharged home so that he could follow up with this complaint with urology as an outpatient. Imaging -CT Abd/ Pelv w/o cont 09/15: No evidence of urinary calculus or urinary tract obstruction. Status post left nephrectomy. Right adrenal hypertrophy. Mural thickening of the distal thoracic esophagus. Correlate with endoscopy. No other significant. Discharge Exam - Head Exam Head Exam: ATRAUMATIC, NORMOCEPHALIC - Eye Exam Eye Exam: EOMI, Normal appearance Pupil Exam: PERRL - Respiratory Exam Respiratory Exam: Clear to PA & Lateral, UNREMARKABLE. absent: Rales, Wheezes - Cardiovascular Exam Cardiovascular Exam: REGULAR RHYTHM, +S1, +S2 - GI/Abdominal Exam GI & Abdominal Exam: Normal Bowel Sounds, Soft. absent: Tenderness - Extremities Exam Extremities exam: normal inspection - Neurological Exam Neurological exam: Alert, CN II-XII Intact, Oriented x3 - Skin Skin Exam: Dry, Intact, Normal Color, Warm Discharge Plan - Follow Up Plan Disposition: HOME/ ROUTINE Instructions: Blood in the Urine (Hematuria), Adult (DC) Additional Instructions: Patient is cleared for discharge per Dr. Tara Easley Please continue taking the following medications as prescribed: -ASA 81 mg one tab by mouth daily at 8am -Norvasc 10 mg one tab by mouth daily at 2pm -Coreg 25 mg one tab by mouth twice per day at 8am and 8pm -Vit D capsule one tab by mouth once per week on -Lantus 10 U SC at bedtime -Crestor 10 mg one tab by mouth daily at bedtime -Sevelamer Carbonate 1600 mg one tab by mouth three times per day at 8am, 2pm, and 8pm -Sodium bicarb one tab by mouth three times per day at 8am, 2pm, and 8pm -Lasix 20 mg one tab by mouth daily at 8am -Ferrex iron supplement one tab by mouth daily at 8am -Januvia 25 mg one tab by mouth daily at bedtime Please make sure to follow up and make an appointment with your urologist Dr. Nikki Hu for outpatient management of hematuria Please make sure to follow up with your primary care physician within 7-10 days of discharge. Referrals: Alexis Turner MD [Staff Provider] - Nikki Hu MD [Staff Provider] - <Sergo Easley J - Last Filed: 09/20/18 12:48> Provider - Provider Date of Admission: 09/15/18 23:12 Attending physician: Marycruz Fowler MD Consults: 09/15/18 23:47 Nephrology Consult Routine Comment: Consulting Provider: Alexis Turner Consulting Physician: Alexis Turner Reason for Consult: new onset hematuria Urology Consult Routine Comment: Consulting Provider: Nikki Hu Consulting Physician: Nikki Hu Reason for Consult: new onset hematuria Hospital Course - Lab Results Lab Results: Most Recent Lab Values WBC 6.3 K/uL (4.8-10.8) 09/16/18 08:14 RBC 2.94 Mil/uL (4.40-5.90) L 09/16/18 08:14 Hgb 8.7 g/dL (12.0-18.0) L 09/16/18 08:14 Hct 24.6 % (35.0-51.0) L 09/16/18 08:14 MCV 83.9 fL (80.0-94.0) 09/16/18 08:14 MCH 29.7 pg (27.0-31.0) 09/16/18 08:14 MCHC 35.3 g/dL (33.0-37.0) 09/16/18 08:14 RDW 13.6 % (11.5-14.5) 09/16/18 08:14 Plt Count 185 K/uL (130-400) 09/16/18 08:14 MPV 8.0 fL (7.2-11.7) 09/16/18 08:14 Neut % (Auto) 57.4 % (50.0-75.0) 09/16/18 08:14 Lymph % (Auto) 32.6 % (20.0-40.0) 09/16/18 08:14 [place] % (Auto) 7.8 % (0.0-10.0) 09/16/18 08:14 Eos % (Auto) 1.7 % (0.0-4.0) 09/16/18 08:14 Baso % (Auto) 0.5 % (0.0-2.0) 09/16/18 08:14 Neut # (Auto) 3.6 K/uL (1.8-7.0) 09/16/18 08:14 Lymph # (Auto) 2.1 K/uL (1.0-4.3) 09/16/18 08:14 [place] # (Auto) 0.5 K/uL (0.0-0.8) 09/16/18 08:14 Eos # (Auto) 0.1 K/uL (0.0-0.7) 09/16/18 08:14 Baso # (Auto) 0.0 K/uL (0.0-0.2) 09/16/18 08:14 PT 10.4 SECONDS (9.7-12.2) 09/15/18 20:37 INR 1.0 09/15/18 20:37 APTT 31.8 SECONDS (21-34) 09/15/18 20:37 Sodium 134 mmol/L (132-148) 09/16/18 08:14 Potassium 4.5 mmol/L (3.6-5.2) 09/16/18 08:14 Chloride 103 mmol/L (98-107) 09/16/18 08:14 Carbon Dioxide 23 mmol/L (22-30) 09/16/18 08:14 Anion Gap 12 (10-20) 09/16/18 08:14 BUN 27 mg/dL (9-20) H 09/16/18 08:14 Creatinine 3.7 mg/dL (0.8-1.5) H 09/16/18 08:14 Est GFR ( Amer) 20 09/16/18 08:14 Est GFR (Non-Af Amer) 16 09/16/18 08:14 POC Glucose (mg/dL) 272 mg/dL (65-110) H 09/16/18 16:25 Random Glucose 206 mg/dL (75-110) H D 09/16/18 08:14 Hemoglobin A1c 11.9 % (4.2-6.5) H D 09/15/18 20:37 Calcium 8.9 mg/dl (8.6-10.4) 09/16/18 08:14 Total Bilirubin 0.3 mg/dL (0.2-1.3) 09/16/18 08:14 AST 26 U/L (17-59) 09/16/18 08:14 ALT 51 U/L (21-72) 09/16/18 08:14 Alkaline Phosphatase 101 U/L (38-126) 09/16/18 08:14 Total Protein 6.4 g/dL (6.3-8.3) 09/16/18 08:14 Albumin 3.8 g/dL (3.5-5.0) 09/16/18 08:14 Globulin 2.6 gm/dL (2.2-3.9) 09/16/18 08:14 Albumin/Globulin Ratio 1.4 (1.0-2.1) 09/16/18 08:14 Urine Color Straw (YELLOW) 09/15/18 20:31 Urine Clarity Clear (Clear) 09/15/18 20:31 Urine pH 7.0 (5.0-8.0) 09/15/18 20:31 Ur Specific [place] 1.003 (1.003-1.030) 09/15/18 20:31 Urine Protein Negative mg/dL (NEGATIVE) 09/15/18 20:31 Urine Glucose (UA) 2+ mg/dL (Normal) H 09/15/18 20:31 Urine Ketones Negative mg/dL (NEGATIVE) 09/15/18 20:31 Urine Blood 2+ (NEGATIVE) H 09/15/18 20:31 Urine Nitrate Negative (NEGATIVE) 09/15/18 20:31 Urine Bilirubin Negative (NEGATIVE) 09/15/18 20:31 Urine Urobilinogen Normal mg/dL (0.2-1.0) 09/15/18 20:31 Ur Leukocyte Esterase Neg [place]/uL (Negative) 09/15/18 20:31 Urine WBC (Auto) < 1 /hpf (0-5) 09/15/18 20:31 Urine Bacteria Rare (<OCC) 09/15/18 20:31 Blood Type O POSITIVE 09/16/18 01:32 Antibody Screen Negative 09/16/18 01:32 Attending/Attestation - Attestation I have personally seen and examined this patient.: Yes I have fully participated in the care of the patient.: Yes I have reviewed all pertinent clinical information, including history, physical exam and plan: Yes Notes (Text): 09/20/18 12:47 This is a late entry. Care of this patient was gone over in detail with resident Dr. Rashawn Beltran. Discharge instructions were also gone over with the patient's son who was at the bedside at the time of discharge. Sergo Easley D.O.
[2018-09-22] MEDS ORDERED: Ergocalciferol 50,000 Intl Units Cap PO SCH (10:00)
== END 2018-09-16 18:40 | disposition home or self-care (01) ==
LOC: C.ER 18:10 → C.9E 23:12 → C.3T 23:35
PROVIDERS: ADMIT Emergency Medicine; ATTEND Emergency Medicine
DX: R31.9 Hematuria, unspecified (principal); N17.9 Acute kidney failure, unspecified; I12.0 Hypertensive chronic kidney disease with stage 5 chronic kidney disease or end stage renal disease; N18.5 Chronic kidney disease, stage 5; Z85.528 Personal history of other malignant neoplasm of kidney; Z90.5 Acquired absence of kidney; D64.9 Anemia, unspecified; Z83.3 Family history of diabetes mellitus; Z23 Encounter for immunization
CPT/HCPCS: 36415; 71045; 74176; 80053; 81001; 82948; 83036; 85025; 85610; 85730; 86850; 86900; 90732; 96361; 96374; 99283; C9113; G0009; G0378; J7030